=== PATIENT | male | born 1980 | race African-American/Black ===

== ENCOUNTER 2020-06-14 14:13 | Emergency (ER) | payer OTHER ==
[~2020-06-14] VITALS: Ht 180.3 cm; Wt 68.5 kg
[2020-06-14] MEDS ORDERED: FLUORESCEIN SOD 1 MG TEST STRIP RIGHTEYE ONE (16:15)
[2020-06-14] MEDS ORDERED: TETRACAINE HCL 0.5% OPTH(EYE) SOLN 4ML RIGHTEYE ONE (16:15)
[2020-06-14 16:47] VITALS: BP 130/90
[2020-06-14] MEDS ORDERED: IBUPROFEN 800 MG TAB PO ONE (17:30)
== END 2020-06-14 17:43 | disposition home or self-care (01) ==
LOC: ER 14:13
DX: S05.01XA Injury of conjunctiva and corneal abrasion without foreign body, right eye, initial encounter (principal); X58.XXXA Exposure to other specified factors, initial encounter; Y93.89 Activity, other specified; Y92.89 Other specified places as the place of occurrence of the external cause; Y99.8 Other external cause status